=== PATIENT | female | born 1950 | race Caucasian/White ===

== ENCOUNTER 2017-03-16 12:10 | Day surgery (SDC) | payer MEDICARE ==
[~2017-03-16] VITALS: Ht 154.9 cm; Wt 72.6 kg
--- NOTE | ~2017-03-16 | EGD ---
EGD REPORT [facility] [address] [place]. 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 Estimated blood loss: Minimal. Procedure: Pre-Anesthesia Assessment: - ASA Grade Assessment: III - A patient with severe systemic disease. - Prior to the procedure, a History and Physical was performed, and patient medications and allergies were reviewed. The patient's tolerance of previous anesthesia was also reviewed. The risks and benefits of the procedure and the sedation options and risks were discussed with the patient. All questions were answered, and informed consent was obtained. Prior Anticoagulants: The patient has taken no previous anticoagulant or antiplatelet agents. After reviewing the risks and benefits, the patient was deemed in satisfactory condition to undergo the procedure. After obtaining informed consent, the endoscope was passed under direct vision. Throughout the procedure, the patient's blood pressure, pulse, and oxygen saturations were monitored continuously. The GIF H190 [id number] was introduced through the mouth, and advanced to the second part of duodenum. The upper GI endoscopy was accomplished without difficulty. The patient tolerated the procedure well. Findings: The examined duodenum was normal. There is no endoscopic evidence of mass even visualised with the duodenoscope in the area of the papilla. Diffuse moderate inflammation characterized by congestion (edema) and erythema was found in the gastric antrum. Biopsies were taken with a cold forceps for histology. A small hiatus hernia was present. EGD REPORT [address] [address] NAME: SUNIL CORCORAN : [birth year] STATUS : REG [facility] [place] PAT#: [id number] AGE: 66 ADM/REG DATE : 03/16/17 MR#: [id number] REPORT SERV DATE: 03/16/17 DICTATED BY: JENNIFER ZAMORA DATE: 03/16/17 REPORT STATUS : Draft TRANSCRIBED BY: [employer] DATE: 03/16/17 The examined esophagus was normal. There is no endoscopic evidence of stricture in the entire esophagus. Impression: - Normal examined duodenum. - Gastritis. Biopsied. - Hiatus hernia. - Normal esophagus. Recommendation: - Patient has a contact number available for emergencies. The signs and symptoms of potential delayed complications were discussed with the patient. Return to normal activities tomorrow. Written discharge instructions were provided to the patient. - Regular diet. - Discharge patient to home. - Continue present medications. - Await pathology results. - Repeat the upper endoscopy in 1 year for surveillance. Procedure Code(s): --- Professional --- 38918, Esophagogastroduodenoscopy, flexible, transoral; with biopsy, single or multiple Diagnosis Code(s): --- Professional --- K29.70, Gastritis, unspecified, without bleeding K44.9, Diaphragmatic hernia without obstruction or gangrene R93.3, Abnormal findings on diagnostic imaging of other parts of digestive tract CPT copyright 2013 [employer]. All rights reserved. The codes documented in this report are preliminary and upon network operations specialist review may be revised to meet current compliance requirements. YUMIKO ZAMORA MD 03/16/2017 3:05 PM This report has been signed electronically. Number of Addenda: 0 Note Initiated On: 03/16/2017 2:39 PM Scope Withdrawal Time 0 hours 0 minutes 0 seconds [address] [place] [id number]
--- NOTE | ~2017-03-16 | EGD ---
EGD REPORT [facility] [address] [place]. [address] NAME: SUNIL CORCORAN : [birth year] STATUS : REG [facility] [place] PAT#: [id number] AGE: 66 ADM/REG DATE : 03/16/17 MR#: [id number] REPORT SERV DATE: 03/16/17 DICTATED BY: JENNIFER ZAMORA DATE: 03/16/17 REPORT STATUS : Draft [facility]ANS[facility]IBED [facility]: [facility] DATE: 03/16/17 Endoscopy Center Patient Name: Sunil Corcoran Date of : 1950 Attending MD: YUMIKO ZAMORA MD Procedure Date No Time: 03/16/2017 Procedure: Colonoscopy Indications: FH of Colon Cancer - 1st degree relative, Last colonoscopy 5 years ago Referring MD: Lorenzo Garzon Medicines: See the Anesthesia note for documentation of the administered medications Complications: No immediate complications. Estimated blood loss: None. Procedure: Pre-Anesthesia Assessment: - ASA Grade Assessment: III - A patient with severe systemic disease. - Prior to the procedure, a History and Physical was performed, and patient medications and allergies were reviewed. The patient's tolerance of previous anesthesia was also reviewed. The risks and benefits of the procedure and the sedation options and risks were discussed with the patient. All questions were answered, and informed consent was obtained. Prior Anticoagulants: The patient has taken no previous anticoagulant or antiplatelet agents. After reviewing the risks and benefits, the patient was deemed in satisfactory condition to undergo the procedure. After I obtained informed consent, the scope was passed under direct vision. Throughout the procedure, the patient's blood pressure, pulse, and oxygen saturations were monitored continuously. The PCF [id number] was introduced through the anus and advanced to the cecum, identified by appendiceal orifice and ileocecal valve. The ileocecal valve, appendiceal orifice and rectum were photographed. The entire colon was examined. The colonoscopy was performed without difficulty. The patient tolerated the procedure well. The quality of the bowel preparation was adequate. Findings: The perianal and digital rectal examinations were normal. Multiple medium-mouthed diverticula were found in the sigmoid colon. Non-bleeding external and internal hemorrhoids were found, and they were Grade I (internal hemorrhoids that do not prolapse). EGD REPORT [address] [address] NAME: SUNIL CORCORAN : [birth year] STATUS : REG [facility]#: [id number] AGE: 66 ADM/REG DATE : 03/16/17 MR#: [id number] REPORT SERV DATE: 03/16/17 DICTATED BY: JENNIFER ZAMORA DATE: 03/16/17 REPORT STATUS : Draft TRANSCRIBED BY: [employer] DATE: 03/16/17 Impression: - Diverticulosis in the sigmoid colon. - Non-bleeding external and internal hemorrhoids. Recommendation: - Patient has a contact number available for emergencies. The signs and symptoms of potential delayed complications were discussed with the patient. Return to normal activities tomorrow. Written discharge instructions were provided to the patient. - High fiber diet indefinitely. - Discharge patient to home. - Continue present medications. - Repeat colonoscopy in 5 years for surveillance. Procedure Code(s): --- Professional --- 39535, Colonoscopy, flexible, proximal to splenic flexure; diagnostic, with or without collection of specimen(s) by brushing or washing, with or without colon decompression (separate procedure) Diagnosis Code(s): --- Professional --- K64.0, First degree hemorrhoids K57.30, Diverticulosis of large intestine without perforation or abscess without bleeding Z80.0, Family history of malignant neoplasm of digestive organs CPT copyright 2013 [employer]. All rights reserved. The codes documented in this report are preliminary and upon cloud operations engineer review may be revised to meet current compliance requirements. YUMIKO ZAMORA MD 03/16/2017 3:23 PM This report has been signed electronically. Number of Addenda: 0 Note Initiated On: 03/16/2017 2:37 PM Scope Withdrawal Time 0 hours 7 minutes 18 seconds [address] [place] [address]
[~2017-03-16 12:10] MED LIST: ASAB PO; CALTRA600D PO; EFFEX75 PO; LOTE10 PO; LOTENSIN HCT1 TA2 PO; NEXIUM20 M1 PO; PRILO PO; PROZAC40 MG PO; VYTORIN 10/40 T1 TAB PO; ZOCOR10 PO
== END 2017-03-16 23:59 | disposition home or self-care (01) ==
LOC: DMU 12:10
PROVIDERS: Internal Medicine Gastroenterology
PROC: 0DJD8ZZ Inspection of Lower Intestinal Tract, Via Natural or Artificial Opening Endoscopic (ICD-10-PCS; principal; 2017-03-16 13:30)
PROC: 0DB78ZX Excision of Stomach, Pylorus, Via Natural or Artificial Opening Endoscopic, Diagnostic (ICD-10-PCS; 2017-03-16 13:30)
DX: Z12.11 Encounter for screening for malignant neoplasm of colon (principal); K64.0 First degree hemorrhoids; K64.4 Residual hemorrhoidal skin tags; K44.9 Diaphragmatic hernia without obstruction or gangrene; R93.3 Abnormal findings on diagnostic imaging of other parts of digestive tract; K57.30 Diverticulosis of large intestine without perforation or abscess without bleeding; I10 Essential (primary) hypertension; Z88.0 Allergy status to penicillin; Z88.5 Allergy status to narcotic agent; Z96.642 Presence of left artificial hip joint; Z96.1 Presence of intraocular lens; Z98.41 Cataract extraction status, right eye; Z98.42 Cataract extraction status, left eye; Z98.890 Other specified postprocedural states; Z80.0 Family history of malignant neoplasm of digestive organs
CPT/HCPCS: 43239; G0105; 88305; J0360